=== PATIENT | male | born 1960 | race Caucasian/White ===

== ENCOUNTER 2017-01-14 23:02 | Inpatient (IN) | payer MEDICARE ==
--- NOTE | ~2017-01-14 | DS ---
Discharge Summary [facility] [address] [place] [address] NAME: JAVIER BROWN : 62 STATUS : DIS Francesca PAT#: [id number] AGE: 56 ADM/REG DATE : 01/14/17 MR#: [id number] REPORT SERV DATE: 01/19/17 DICTATED BY: JR. MCNEILL WILLIAM JOHN DATE: 01/18/17 REPORT STATUS : Draft TRANSCRIBED BY: MODL DATE: 01/18/17 ADMISSION DATE: 01/14/2017 DISCHARGE DATE: 01/18/2017 DISCHARGE DIAGNOSES: Include: 1. Persistent atrial fibrillation with rapid ventricular response. 2. Hypotension, which has resolved. 3. 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 4. Obstructive sleep apnea, CPAP dependent. 5. Hypertension. 6. Bipolar disease with extrapyramidal symptoms. 7. Obesity with body mass index of 40.9. OPERATIONS, PROCEDURES, AND TREATMENT: Include: 1. CT of the brain done 01/14/2017, which showed stable mild atrophy without intracranial pathology. 2. PA and lateral chest x-ray done on 01/14/2017 showed clear lungs with normal heart size. 3. Carotid flow study done 01/15/2017 which showed left carotid category 1 by NASCET criteria. The right carotid was normal. Right vertebra was not visualized, possibly due to congenital under development. Left vertebra was antegrade flow. 4. Echocardiogram done on 01/15/2017 showed an ejection fraction 54% with indeterminate diastolic function. There was mild atrial enlargement and mild on the left and right. DISCHARGE MEDICATIONS: Include: 1. Wellbutrin SR 150 mg orally twice a day. 2. Coreg 25 mg orally twice a day. 3. Diltiazem ER 300 mg orally daily. 4. Neurontin 600 mg four times a day. 5. Haldol 5 mg at bedtime. 6. Lantus Insulin 65 units twice a day. 7. Prinivil 20 mg twice a day. 8. Lovastatin 40 mg daily. 9. Trileptal 600 mg twice a day. 10.Protonix 40 mg twice a day. 11.Potassium chloride 20 mEq daily. 12.Xarelto 20 mg orally daily. 13.Artane 5 mg twice a day. 14.Glucophage 1000 mg twice a day. 15.Sliding scale Humalog insulin. 16.Requip 1 mg three times a day as needed. HOSPITAL COURSE: The patient is a 56-year-old white male, who presented to the emergency room on 01/14/2017 with confusion, gait disturbance, and evidence of rapid atrial fibrillation. About four days prior, the patient had intermittent confusion and was described as "not comprehending" things around him. He also had a gait disturbance, had been staggering, and acting oddly according to his . He also had some nausea over the Discharge Summary [address] [address] NAME: JAVIER BROWN : 62 STATUS : DIS Francesca PAT#: [id number] AGE: 56 ADM/REG DATE : 01/14/17 MR#: [id number] REPORT SERV DATE: 01/19/17 DICTATED BY: JR. MCNEILL WILLIAM JOHN DATE: 01/18/17 REPORT STATUS : Draft TRANSCRIBED BY: DIAZ DATE: 01/18/17 prior several days and had vomited up several of his doses of medication. In addition, he had an intermittent headache for several days 03/31 in severity, and his eyes were "burning." He also developed slightly productive cough of yellow phlegm. He had some palpitations, orthostatics symptoms, and dizziness as well as diaphoresis but no fevers or chills. On initial exam, his temperature is 97.1, heart rate 130, blood pressure 172/95, respiratory rate 20, saturation was 98% on room air. In general, he was disheveled. His lung exam had scattered rhonchi without wheezes or rales. He had a tachycardic irregularly irregular rhythm without edema. He has had a notably flat blunted affect though was oriented. Blood work was remarkable for a glucose of 346. EKG showed rapid atrial fibrillation. CT of the head and chest x-ray as detailed above. HOSPITAL COURSE: The patient was admitted to [address] [place] [address]. He was placed on an IV diltiazem drip and had an echocardiogram which is detailed above. His thyroid stimulating hormone was checked, and it was normal at 1.45, and his Xarelto was continued. The patient's rate was controlled on diltiazem drip. He was restarted on oral medications, then had a brief episode of relative hypotension with blood pressures in the mid 70s to 90 systolic. His blood pressure medications were held for one day. He was given a normal saline bolus, and his medications were resumed the following day without untoward event. At discharge, his blood pressure is 145/88 with a heart rate in the mid 70s. Regarding his uncontrolled diabetes mellitus type 2, his insulin regimen was refined. His Lantus was increased from 50 units twice a day to 65 units twice a day with reasonable control. This will need further refinement. Regarding his bipolar disease with extrapyramidal symptoms, this is overall controlled. The patient already has follow up with his psychiatrist Dr. Brendan Quiles in one to two weeks. It is critical that he keep this appointment. The remainder of the patient's health problems were stable and were not further addressed. Consultants on this case included the Neurology Service. For discharge exam and laboratory, please see the daily progress note. DISCHARGE DIET: An ADA diet. DISCHARGE ACTIVITY: As tolerated. This discharge took 35 minutes for patient encounter, coordination of care, and documentation. FOLLOWUP: 1. Follow up with primary care provider, Blaise Katz in 1 to 2 weeks. Discharge Summary [address] [address] NAME: JAVIER BROWN : 62 STATUS : DIS Francesca PAT#: [id number] AGE: 56 ADM/REG DATE : 01/14/17 MR#: [id number] REPORT SERV DATE: 01/19/17 DICTATED BY: JR. MCNEILL WILLIAM JOHN DATE: 01/18/17 REPORT STATUS : Draft TRANSCRIBED BY: DIAZ DATE: 01/18/17 2. Follow up with psychiatrist Dr. Brendan Quiles, in 1-2 weeks as scheduled. 3. Further refinement of his diabetic regimen. 4. Continued psychiatric followup. DICTATED BY: Javier Mcneill Jr, MD WJF/DIAZ Javier Mcneill Jr, MD / [id number] CC: Javier Mcneill Jr, MD Carroll Odem, M.D.
--- NOTE | ~2017-01-14 | HP ---
History And Physical [address] [place]. [address] NAME: KALA BROWN : 62 STATUS : ADM Francesca PAT#: [id number] AGE: 56 ADM/REG DATE : 01/14/17 MR#: [id number] REPORT SERV DATE: 01/15/17 DICTATED BY: JUNAID RODRIGEZ DATE: 01/15/17 REPORT STATUS : Draft TRANSCRIBED BY: MODL DATE: 01/15/17 DATE OF ADMISSION: 01/14/2017 CHIEF COMPLAINT: A 56-year-old male presenting with confusion, gait disturbance, and evidence of rapid atrial fibrillation. HISTORY OF PRESENT ILLNESS: The patient's history was obtained through careful interview with the patient, , coupled with review of [facility] medical records. For about four days the patient has had intermittent confusion sometimes he has described as "not comprehending" things around him. He has also had gait disturbance, has been staggering about and acting oddly according to his . He also has developed some nausea over the last several days, and over the last 24 hours he has had to skip his Xarelto dose because of vomiting. He has had intermittent headache for the last several days, diffuse 8/10 severity. It is actually resolved by the time he was seen here. He describes his eyes "burning," but no discharge, no redness. He has also developed a slight productive cough with yellow sputum, some shortness of breath characterized by dyspnea on exertion, and increased sinus drainage. He has had palpitations, orthostatic symptoms, dizziness. He describes diaphoresis with profuse sweating at times, but no fevers or chills. No change in bowel or bladder habit. No fevers or chills noted. REVIEW OF SYSTEMS: Otherwise, a 14-point review of systems was obtained and was negative. PAST MEDICAL HISTORY: 1. Diabetes. 2. Atrial fibrillation, on Xarelto. 3. Obstructive sleep apnea, on BiPAP. 4. Peptic ulcer disease. 5. Hypertension. 6. Elevated cholesterol. 7. Chronic right leg deformity from a previous injury and surgery. 8. Diastolic congestive heart failure. Ejection fraction 50% in 2013. 9. Body mass index 49. 10.Negative cardiac stress test. PAST SURGICAL HISTORY: 1. Leg surgery. History And Physical [address] [address] NAME: KALA BROWN : 62 STATUS : ADM Francesca PAT#: [id number] AGE: 56 ADM/REG DATE : 01/14/17 MR#: [id number] REPORT SERV DATE: 01/15/17 DICTATED BY: JUNAID RODRIGEZ DATE: 01/15/17 REPORT STATUS : Draft TRANSCRIBED BY: DIAZ DATE: 01/15/17 2. Ear surgery. ALLERGIES: TO TOMATOES. SOCIAL HISTORY: No tobacco abuse. No drug abuse. Has been to his for 35 years. He is disabled. Lives in a trailer. He and his were concerned about black mold exposure. They have one son. He lives in [place], [place]. 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 FAMILY HISTORY: Sister with heart attack in her 50s. Father with diabetes. CURRENT MEDICATIONS: 1. Wellbutrin sustained release 150 mg p.o. b.i.d. 2. Coreg 25 mg p.o. b.i.d. 3. Diltiazem extended release 300 mg p.o. daily. 4. Lasix 40 mg p.o. daily. 5. Neurontin 600 mg four times a day. 6. Haldol 5 mg p.o. q.h.s. 7. Lantus 50 units subcutaneous twice a day. 8. Lisinopril 20 mg p.o. b.i.d. 9. Mevacor 40 mg p.o. daily. 10.Metformin 1000 mg p.o. b.i.d. 11.Trileptal 600 mg p.o. b.i.d. 12.Protonix 40 mg p.o. b.i.d. 13.Potassium 20 mEq p.o. daily. 14.Xarelto 20 mg p.o. daily. 15.Requip 1 mg p.o. t.i.d. 16.Artane 5 mg p.o. b.i.d. PHYSICAL EXAMINATION: VITAL SIGNS: Temperature 97.1, pulse 130, blood pressure 172/95, respiratory rate 16, and O2 saturation 98% on room air. GENERAL: Disheveled male, but in no evidence of acute distress. He appears chronically ill as well. HEENT: Pupils equal, round, and reactive to light. No conjunctival pallor. No scleral icterus. Nares are patent. Oropharynx is clear of obstruction. Moist mucous membranes. NECK: Trachea midline. No thyromegaly. LYMPH: No cervical lymphadenopathy. No supraclavicular lymphadenopathy. RESPIRATORY: The patient does have scattered rhonchi on exam. No wheezes, no rales. He has a slightly labored respiratory effort, but is not in any means distressed. CARDIOVASCULAR: Tachycardic irregularly irregular. No murmurs, rubs, or gallops. No current extremity edema is appreciated. ABDOMEN: Soft, nontender, and nondistended. Normal bowel sounds auscultated throughout. No hepatosplenomegaly. DERMATOLOGICAL: Warm and dry extremities. No pallor. No cyanosis. PSYCHIATRIC: Notably flat, blunted affect, but claims to be in a good mood. He is currently alert and oriented x3. History And Physical [address] [address] NAME: KALA BROWN : 62 STATUS : ADM Francesca PAT#: [id number] AGE: 56 ADM/REG DATE : 01/14/17 MR#: [id number] REPORT SERV DATE: 01/15/17 DICTATED BY: JUNAID RODRIGEZ DATE: 01/15/17 REPORT STATUS : Draft TRANSCRIBED BY: DIAZ DATE: 01/15/17 LABORATORY DATA: Troponin negative. INR 1.1. Liver enzymes within normal limits. White blood cell count 5.6, hemoglobin 17, hematocrit 49, and platelets 219. Sodium 137, potassium 3.7, chloride 103, bicarb 24, BUN 16, creatinine 1.2, and glucose 346. STUDIES: 1. Chest x-ray by my own evaluation shows no acute cardiopulmonary process. 2. EKG by my own evaluation shows rapid atrial fibrillation. 3. CT scan of the brain without contrast shows no acute intracranial process. ASSESSMENT AND PLAN: 1. Rapid atrial fibrillation. Place on IV Cardizem drip. Check an echocardiogram to redefine function of the heart. Check thyroid. Continue Xarelto. 2. Encephalopathy with gait disturbance. Obtain Neurology consult. Negative CT scan of the brain. We will check an echocardiogram. Check carotid ultrasound. Continue Xarelto. 3. Uncontrolled diabetes. Check hemoglobin A1c. Continue basal insulin plus sliding scale insulin. 4. Obstructive sleep apnea. Continue BiPAP. 5. Acute bronchitis. Place on Duo nebulizers and doxycycline. KPL/MODL Junaid Rodrigez M.D. / [id number] CC: Marcia Lizama M.D.
[2017-01-14 17:33] LABS: BASOPHILS 0.2 %; BASOPHILS ABSOLUTE 0.01 10/3/uL (0.0-0.16); EOSINOPHILS 0.7 %; EOSINOPHILS ABSOLUTE 0.04 10/3/uL (0.0-0.53); ER CBC TAT 0 Hrs 05 Mins; HEMOGLOBIN 17.4 g/dL (13.6-17.8); IMMATURE GRANULOCYTES 0.2 %; IMMATURE GRANULOCYTES ABSOLUTE 0.01 10/3/uL (0.0-0.11); LYMPHOCYTES 9.1 %; LYMPHOCYTES ABSOLUTE 0.51 10/3/uL (0.67-4.30); MEAN CORPUS HGB CONC 35.6 g/dL (32.0-36.0); MEAN CORPUSCULAR HEMOGLOB 29.8 pg (26.0-34.0); MEAN CORPUSCULAR VOLUME 83.9 fL (80-100); MEAN PLATELET VOLUME 10.4 fL (9.2-13.0); MONOCYTES 12.1 %; MONOCYTES ABSOLUTE 0.68 10/3/uL (0.21-1.20); NEUTROPHILS 77.7 %; NEUTROPHILS ABSOLUTE 4.37 10/3/uL (2.02-8.40); PLATELET COUNT 219 10/3/uL (150-400); RBC DISTRIBUTION WIDTH 13.3 % (12.0-16.0); RED CELL COUNT 5.83 10/6/uL (4.7-6.1); WHITE BLOOD CELLS 5.6 10/3/uL (4.5-10.5)
[2017-01-14 17:34] LABS: HEMATOCRIT 48.9 % (40.0-51.0); MANUAL DIFF NO %
[2017-01-14 17:41] LABS: INTERNATIONAL NORMAL RATI 1.1 UNITS (-); PARTIAL THROMBO TIME 25.1 SEC (22.5-37.2); PROTIME (NOT ORD) 13.9 SEC (12.0-14.5)
[2017-01-14 17:50] LABS: A/G RATIO 1.1 (0.7-1.9); BUN (BLOOD UREA NITROGEN) 16 MG/DL (6-23); CALCIUM, SERUM 8.9 MG/DL (8.5-10.4); CHLORIDE, SERUM 103 MMOL/L (96-112); CO2 (CARBON DIOXIDE) 24 MMOL/L (24-34); GFR AFRICAN AMERICAN 78 ML/MIN (>=60); GFR NON AFRICAN AMERICAN 68 ML/MIN (>=60); GLOBULIN 3.6 G/DL (2.5-4.1); POTASSIUM, SERUM 3.7 MMOL/L (3.5-5.3); SGOT(AST) 13 U/L (5-40); SGPT(ALT) 15 U/L (5-65); SODIUM, SERUM 137 MMOL/L (135-148); TOTAL BILIRUBIN 0.4 MG/DL (0-1.2); TOTAL PROTEIN 7.6 G/DL (6.0-8.5); TROPONIN I <0.02 NG/ML (<0.05)
[2017-01-14 17:51] LABS: ALKALINE PHOSPHATASE 128 U/L (45-117); GLUCOSE, SERUM 346 MG/DL (60-99)
[~2017-01-14 23:02] MED LIST: ACETAMINOPHEN PO; ACTOS45 PO; ALAVERT10 MG PO; AMB10 PO; ASAB PO; CALCIUM PO; CARDCD240 PO; COREG25 PO; COREG6 PO; COUGH DROPS3.1 MG PO; FORTAMET1000 MG PO; GLUCOPHAGE1000 MG PO; HYDROCODONE PO; KLONO1 PO; KLOR-CON M2020 MEQ PO; KOMBIGLYZE XR1 EAC1 PO; L40 PO; LANTUS SC; LEXAPRO20 PO; LIOR10 PO; LISINOPRIL40 MG PO; LOP100 PO; LOP50 PO; LORTAB10 PO; LYRICA100 MG PO; LYRICA150 MG PO; MEVACOR40 MG PO; NEUR600 PO; NORCO1 TA2 PO; NORV5 PO; NOVOLOG SQ; ONGLYZA2.5 MG PO; PEP20 PO; PRIN20 PO; PRISTIQ100 MG PO; PROTONIX PO; PROZAC40 MG PO; REQUIP1 PO; RISP4 PO; T PO; TOUJEO SQ; TRILEPTAL600 MG PO; TYLENOL 8 HR650 MG PO; VICTOZA18 MG/3 ML SC; VITAMIN C250 MG PO; VITAMIN D1000 UNI1 PO; XANAX1 MG PO; XARELTO20 MG PO; ZESTORETIC PO; ZESTORETIC1 TAB PO; ZESTRIL20 MG PO; ZYRTEC ALLGY10 MG PO; [UNRECOGNIZED DRUG - OTHER] PO; [UNRECOGNIZED DRUG - OTHER] PO
[2017-01-15] MEDS ORDERED: NEUR600 PO (00:33)
[2017-01-15] MEDS ORDERED: CARTIA XT300 MG/24 PO (00:34)
[2017-01-15] MEDS ORDERED: L40 PO (00:34)
[2017-01-15] MEDS ORDERED: GLUCOPHAGE1000 MG PO (00:34)
[2017-01-15] MEDS ORDERED: KDUR20 PO (00:34)
[2017-01-15] MEDS ORDERED: COREG25 PO (00:34)
[2017-01-15] MEDS ORDERED: REQUIP1 PO (00:35)
[2017-01-15] MEDS ORDERED: MEVACOR40 MG PO (00:35)
[2017-01-15] MEDS ORDERED: LANTUS SC (00:35)
[2017-01-15] MEDS ORDERED: PRIN20 PO (00:35)
[2017-01-15] MEDS ORDERED: PROTONIX PO (00:36)
[2017-01-15] MEDS ORDERED: ARTANE 5 MG TAB5 MG PO (00:36)
[2017-01-15] MEDS ORDERED: TRILEPTAL600 MG PO (00:36)
[2017-01-15] MEDS ORDERED: WELLSR150 PO (00:36)
[2017-01-15] MEDS ORDERED: XARELTO20 MG PO (00:37)
[2017-01-15] MEDS ORDERED: H5 PO (00:41)
[2017-01-15 06:06] LABS: BASOPHILS 0.2 %; BASOPHILS ABSOLUTE 0.01 10/3/uL (0.0-0.16); EOSINOPHILS 0.7 %; EOSINOPHILS ABSOLUTE 0.03 10/3/uL (0.0-0.53); HEMATOCRIT 47.5 % (40.0-51.0); HEMOGLOBIN 16.5 g/dL (13.6-17.8); IMMATURE GRANULOCYTES 0.2 %; IMMATURE GRANULOCYTES ABSOLUTE 0.01 10/3/uL (0.0-0.11); LYMPHOCYTES 10.1 %; LYMPHOCYTES ABSOLUTE 0.45 10/3/uL (0.67-4.30); MEAN CORPUS HGB CONC 34.7 g/dL (32.0-36.0); MEAN CORPUSCULAR HEMOGLOB 29.4 pg (26.0-34.0); MEAN CORPUSCULAR VOLUME 84.7 fL (80-100); MEAN PLATELET VOLUME 10.6 fL (9.2-13.0); NEUTROPHILS 70.8 %; NEUTROPHILS ABSOLUTE 3.15 10/3/uL (2.02-8.40); PLATELET COUNT 186 10/3/uL (150-400); RBC DISTRIBUTION WIDTH 13.6 % (12.0-16.0); RED CELL COUNT 5.61 10/6/uL (4.7-6.1); WHITE BLOOD CELLS 4.5 10/3/uL (4.5-10.5)
[2017-01-15 06:11] LABS: MANUAL DIFF NO %
[2017-01-15 06:15] LABS: INTERNATIONAL NORMAL RATI 1.1 UNITS (-); PARTIAL THROMBO TIME 25.8 SEC (22.5-37.2); PROTIME (NOT ORD) 14.2 SEC (12.0-14.5)
[2017-01-15 06:57] LABS: B NATRIURETIC PEPTIDE (BNP) 107.2 PG/ML (< 100.0)
[2017-01-15 07:54] LABS: A/G RATIO 1.1 (0.7-1.9); ALBUMIN 3.6 G/DL (3.5-5.0); ALKALINE PHOSPHATASE 109 U/L (45-117); BUN (BLOOD UREA NITROGEN) 20 MG/DL (6-23); CALCIUM, SERUM 8.4 MG/DL (8.5-10.4); CHLORIDE, SERUM 103 MMOL/L (96-112); CK-MB 1.1 NG/ML; CO2 (CARBON DIOXIDE) 28 MMOL/L (24-34); CPK 49 U/L (0-200); CREATININE 1.07 MG/DL (0.70-1.30); FREE T4 1.34 NG/DL (0.76-1.46); GFR AFRICAN AMERICAN 90 ML/MIN (>=60); GFR NON AFRICAN AMERICAN 78 ML/MIN (>=60); GLOBULIN 3.3 G/DL (2.5-4.1); GLUCOSE, SERUM 292 MG/DL (60-99); POTASSIUM, SERUM 3.3 MMOL/L (3.5-5.3); SGOT(AST) 12 U/L (5-40); SGPT(ALT) 15 U/L (5-65); SODIUM, SERUM 138 MMOL/L (135-148); TOTAL BILIRUBIN 0.4 MG/DL (0-1.2); TOTAL PROTEIN 6.9 G/DL (6.0-8.5); TROPONIN I <0.02 NG/ML (<0.05)
[2017-01-15] MEDS ORDERED: HUMALOG SC (12:18)
[2017-01-16 06:46] LABS: BASOPHILS 0.3 %; BASOPHILS ABSOLUTE 0.01 10/3/uL (0.0-0.16); EOSINOPHILS 0.5 %; EOSINOPHILS ABSOLUTE 0.02 10/3/uL (0.0-0.53); HEMATOCRIT 43.3 % (40.0-51.0); HEMOGLOBIN 14.7 g/dL (13.6-17.8); IMMATURE GRANULOCYTES 0.3 %; IMMATURE GRANULOCYTES ABSOLUTE 0.01 10/3/uL (0.0-0.11); LYMPHOCYTES 18.3 %; LYMPHOCYTES ABSOLUTE 0.69 10/3/uL (0.67-4.30); MEAN CORPUS HGB CONC 33.9 g/dL (32.0-36.0); MEAN CORPUSCULAR VOLUME 85.4 fL (80-100); MEAN PLATELET VOLUME 10.5 fL (9.2-13.0); MONOCYTES ABSOLUTE 0.68 10/3/uL (0.21-1.20); NEUTROPHILS 62.6 %; NEUTROPHILS ABSOLUTE 2.36 10/3/uL (2.02-8.40); PLATELET COUNT 164 10/3/uL (150-400); RBC DISTRIBUTION WIDTH 13.8 % (12.0-16.0); RED CELL COUNT 5.07 10/6/uL (4.7-6.1); WHITE BLOOD CELLS 3.8 10/3/uL (4.5-10.5)
[2017-01-16 06:50] LABS: MANUAL DIFF NO %
[2017-01-16 06:57] LABS: CALCIUM, SERUM 8.2 MG/DL (8.5-10.4); CHLORIDE, SERUM 104 MMOL/L (96-112); CO2 (CARBON DIOXIDE) 24 MMOL/L (24-34); SODIUM, SERUM 136 MMOL/L (135-148)
[2017-01-16 06:58] LABS: BUN (BLOOD UREA NITROGEN) 34 MG/DL (6-23); CREATININE 2.04 MG/DL (0.70-1.30); GFR AFRICAN AMERICAN 41 ML/MIN (>=60); GFR NON AFRICAN AMERICAN 36 ML/MIN (>=60); GLUCOSE, SERUM 170 MG/DL (60-99)
[2017-01-16 12:12] LABS: GLYCOHEMOGLOBIN (HbA1c) 9.6 % (4.7-6.1)
[2017-01-17 04:04] LABS: BUN (BLOOD UREA NITROGEN) 36 MG/DL (6-23); CALCIUM, SERUM 8.3 MG/DL (8.5-10.4); CHLORIDE, SERUM 107 MMOL/L (96-112); CO2 (CARBON DIOXIDE) 24 MMOL/L (24-34); CREATININE 1.65 MG/DL (0.70-1.30); GFR AFRICAN AMERICAN 53 ML/MIN (>=60); GFR NON AFRICAN AMERICAN 46 ML/MIN (>=60); POTASSIUM, SERUM 4.1 MMOL/L (3.5-5.3); SODIUM, SERUM 141 MMOL/L (135-148)
[2017-01-17 04:05] LABS: GLUCOSE, SERUM 113 MG/DL (60-99)
[2017-01-18 04:32] LABS: BUN (BLOOD UREA NITROGEN) 20 MG/DL (6-23); CALCIUM, SERUM 8.9 MG/DL (8.5-10.4); CHLORIDE, SERUM 109 MMOL/L (96-112); CO2 (CARBON DIOXIDE) 23 MMOL/L (24-34); CREATININE 1.01 MG/DL (0.70-1.30); GFR AFRICAN AMERICAN 97 ML/MIN (>=60); GFR NON AFRICAN AMERICAN 83 ML/MIN (>=60); GLUCOSE, SERUM 101 MG/DL (60-99); POTASSIUM, SERUM 4.2 MMOL/L (3.5-5.3); SODIUM, SERUM 141 MMOL/L (135-148)
== END 2017-01-18 14:12 | disposition home or self-care (01) | DRG 309 ==
LOC: ER 23:02 → 5NO 23:30
PROVIDERS: Emergency Medicine; Hospitalist; Internal Medicine
DX: I48.1 Persistent atrial fibrillation (principal); I50.32 Chronic diastolic (congestive) heart failure; I11.0 Hypertensive heart disease with heart failure; E11.40 Type 2 diabetes mellitus with diabetic neuropathy, unspecified; Z68.41 Body mass index [BMI] 40.0-44.9, adult; R26.9 Unspecified abnormalities of gait and mobility; Z79.02 Long term (current) use of antithrombotics/antiplatelets; G47.33 Obstructive sleep apnea (adult) (pediatric); Z87.11 Personal history of peptic ulcer disease; Z79.84 Long term (current) use of oral hypoglycemic drugs; J20.9 Acute bronchitis, unspecified; E11.65 Type 2 diabetes mellitus with hyperglycemia; F31.9 Bipolar disorder, unspecified; Z79.4 Long term (current) use of insulin; E66.01 Morbid (severe) obesity due to excess calories
CPT/HCPCS: 70450; 71020; 80048; 80053; 81001; 82533; 82550; 82553; 82962; 83036; 83735; 83880; 84439; 84443; 84484; 85025; 85610; 85730; 87045; 87046; 87046-59; 87493; 87493-59; 87899; 87899-59; 93005; 93880; 94640; 96365; 99285; A9270-GY; C8929; J2405; J2765; J3475; Q9957